=== PATIENT | female | born 1940 | race Caucasian/White ===

== ENCOUNTER 2023-05-01 15:24 | Outpatient (CLI) | payer MEDICARE, SELFPAY ==
--- NOTE | ~2023-05-01 | CT_ITS ---
EXAMINATION: CT abdomen pelvis wo con DATE: 05/01/2023 15:53 INDICATION: Proteus infection. TECHNIQUE: Computed tomography (CT) of the abdomen and pelvis was performed without intravenous contr ast. Automated exposure control and iterative reconstruction technique were employed. The dose-length product was 899.25 mGy-cm. COMPARISON: None. FINDINGS: The visualized portions of the lung bases demonstrate peripheral septal thickening, likely chronic lung disease. No pleural effusion. The heart size is normal. There are coronary artery calcif ications. No pericardial effusion. There are cysts in the liver measuring up to 6.2 cm. There are nadia nges of cholecystectomy. The spleen, pancreas, adrenal glands, and right kidney are normal. There is a 2.9 cm cyst in left kidney. There is no urolithiasis. There is calcified atherosclerosis of the aor ta and many of the other arteries. There is prominent fat in the inguinal canals that may be hernias. There is diverticulosis of the colon without evidence of diverticulitis. There are no dilated loops of bowel. The appendix is not visualized. There are no pathologically enlarged lymph nodes. There is no free intraperitoneal fluid. There is severe lumbar spondylosis. IMPRESSION: 1. No urolithiasis. Reviewed, dictated and finalized at location E. IMPRESSION: 1. No urolithiasis.
== END 2023-05-01 15:25 | disposition home or self-care (01) ==
PROVIDERS: PCP Physician Assistant; Visit Provider Nurse Practitioner
DX: A49.8 Other bacterial infections of unspecified site (principal)
CPT/HCPCS: 74176